=== PATIENT | male | born 1985 | race Caucasian/White ===

== ENCOUNTER → 2017-01-31 | Outpatient (CLI) | payer OTHER ==
[2017-01-31 11:55] LABS: Carbamazepine (Tegretol) 9.3 ug/mL
== END | disposition home or self-care (01) ==
LOC: LABWHC1 07:42
PROVIDERS: ATTEND Psychiatry & Neurology Neurology
DX: G40.209 Localization-related (focal) (partial) symptomatic epilepsy and epileptic syndromes with complex partial seizures, not intractable, without status epilepticus (principal)
CPT/HCPCS: 36415; 80156; 80177; 84295

== ENCOUNTER 2017-04-05 16:51 | Emergency (ER) | payer OTHER ==
[2017-04-05 16:57] VITALS: BP 161/104; PULSE 89; RESP 18; TEMP 98.5
[2017-04-05] MEDS ORDERED: PROPARACAINE 0.5% OPHTH DROPS 15 ML BTL BOTH EYES STA (17:29)
--- NOTE | 2017-04-05 17:47 | ED ---
Eye Problem HPI - General Chief complaint: Eye Problems Stated complaint: left eye irritation Time Seen by Provider: 04/05/17 17:00 Source: family, RN notes reviewed Mode of arrival: ambulatory Limitations: altered mental status - History of Present Illness Initial comments: Patient's 31-year-old male presents to the emergency room for evaluation of left eye irritation. 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 Patient 's mother states that she brought patient to his primary care provider today for runny nose, itchy eyes and nasal congestion. Patient's mother states that patient was started on methylprednisolone taper and Augmentin. Patient's mother states that patient has been itching his eyes consistently for the past few days. Patient's mother states that patient is given Benadryl in the morning every day. Patient's mother states that patient's left eye has become very red and draining. Patient's mother states that patient's eyes were not examined earlier today and would like his eyes examined. Patient's mother states that he either has a foreign body in his eye or he scratched his eye. Patient's mother denies fevers. Patient's mother denies any other symptoms or complaints. - Related Data Previous Rx's Medication Instructions Recorded Polymyxin B-Trimethoprim Ophth 1 drops LEFT EYE Q4H 10 Days 04/05/17 [Polytrim Opthalmic] Allergies Allergy/AdvReac Type Severity Reaction Status Date / Time cefaclor [From Ceclor] Allergy Rash/Hives Verified 04/05/17 16:58 phenytoin [From Dilantin] Allergy Rash/Hives Verified 04/05/17 16:58 Review of Systems ROS Statement: Those systems with pertinent positive or pertinent negative responses have been documented in the HPI. ROS Other: All systems not noted in ROS Statement are negative. Past Medical History Past Medical History: Seizure Disorder Additional Past Medical History / Comment(s): non verbal History of Any Multi-Drug Resistant Organisms: None Reported Past Surgical History: No Surgical Hx Reported Past Psychological History: No Psychological Hx Reported Smoking Status: Never smoker Past Alcohol Use History: None Reported Past Drug Use History: None Reported General Exam - General Exam Comments Initial Comments: Sitting in exam room, no distress Limitations: altered mental status General appearance: alert Head exam: Present: atraumatic, normocephalic, normal inspection Expanded Eyelids: Normal Inspection: Bilateral Pupils: Regular, Round: Bilateral, Reactive: Bilateral Sclera/Conjunctival: Normal Inspection: Right, Injection: Left, Exudate: Left Anterior chamber: Normal Inspection: Bilateral ENT exam: Present: TM's normal bilaterally, other (b/l clear runny nose) Neck exam: Present: normal inspection Respiratory exam: Present: normal lung sounds bilaterally. Absent: respiratory distress Cardiovascular Exam: Present: regular rate, normal rhythm, normal heart sounds Extremities exam: Present: normal inspection Back exam: Present: normal inspection Neurological exam: Present: alert, altered Psychiatric exam: Present: normal affect Skin exam: Present: warm, dry, intact, normal color. Absent: rash Course Vital Signs 04/05/17 16:53 Temperature 98.5 F Pulse Rate 89 Respiratory 18 Rate Blood Pressure 161/104 O2 Sat by Pulse 97 Oximetry Medical Decision Making - Medical Decision Making Patient is a 31-year-old male presents to the emergency room for evaluation of left eye irritation. Left eye was anesthetized with proparacaine drops and evaluated under wood lamp and fluorescein dye. Uptake noted over the pupil. No foreign bodies noted. Patient was placed on antibiotic eyedrops for corneal abrasion. Advised patient's mother to follow up with custom shop worker or primary care provider. Patient's mother states she understands everything that was discussed with her. Return parameters discussed. Disposition Clinical Impression: Left corneal abrasion Disposition: HOME SELF-CARE Condition: Good Instructions: Corneal Abrasion (ED) Additional Instructions: Apply eyedrops as directed. Please up with primary care provider or custom shop worker for reevaluation in 24-48 hours. Continue taking other prescribed medications as directed. If any new symptom arises or symptoms worsen , return to ER as soon as possible. Prescriptions: Polymyxin B-Trimethoprim Ophth [Polytrim Opthalmic] 1 drops LEFT EYE Q4H 10 Days Referrals: Valentin Young MD [Primary Care Provider] - 1-2 days Musa Grigsby MD [STAFF PHYSICIAN] - 1-2 days Time of Disposition: 17:44
== END 2017-04-05 17:54 | disposition home or self-care (01) ==
LOC: EEVIPCON 16:51 → EC 16:51
DX: S05.92XA Unspecified injury of left eye and orbit, initial encounter (principal); Z88.1 Allergy status to other antibiotic agents; Z88.8 Allergy status to other drugs, medicaments and biological substances; X58.XXXA Exposure to other specified factors, initial encounter
CPT/HCPCS: 99283

== ENCOUNTER → 2018-08-22 | Outpatient (CLI) | payer OTHER | LOC: LABWHC1 08:05 | PROVIDERS: ATTEND Psychiatry & Neurology Neurology | DX: G40.209 Localization-related (focal) (partial) symptomatic epilepsy and epileptic syndromes with complex partial seizures, not intractable, without status epilepticus (principal) | CPT/HCPCS: 36415; 80156; 80177 ==

== ENCOUNTER → 2020-11-29 | Outpatient (CLI) | payer OTHER ==
[2020-11-29 17:40] LABS: Carbamazepine (Tegretol) 10.3 ug/mL (4.0-12.0)
== END | disposition home or self-care (01) ==
LOC: LABWHC1 08:40
PROVIDERS: ATTEND Psychiatry & Neurology Neurology
DX: G40.209 Localization-related (focal) (partial) symptomatic epilepsy and epileptic syndromes with complex partial seizures, not intractable, without status epilepticus (principal)
CPT/HCPCS: 36415; 80156; 80177; 84295

== ENCOUNTER → 2021-08-09 | Outpatient (CLI) | payer OTHER ==
[2021-08-09 12:07] LABS: Carbamazepine (Tegretol) 9.3 ug/mL (4.0-12.0)
== END | disposition home or self-care (01) ==
LOC: LABWHC1 07:46
PROVIDERS: ATTEND Psychiatry & Neurology Neurology
DX: G40.209 Localization-related (focal) (partial) symptomatic epilepsy and epileptic syndromes with complex partial seizures, not intractable, without status epilepticus (principal)
CPT/HCPCS: 36415; 80156; 80177; 84295

== ENCOUNTER → 2022-07-03 | Outpatient (CLI) | payer OTHER ==
[2022-07-03 14:40] LABS: Basophils # (A) 0.07 X 10*3/uL (0.00-0.10); Basophils % (A) 1.4 %; Eosinophils # (A) 0.44 X 10*3/uL (0.04-0.35); Eosinophils % (A) 8.7 %; HCT 44.4 % (39.6-50.0); Immature Grans, Automated 0.4 %; Lymphocytes # (A) 1.86 X 10*3/uL (0.90-5.00); Lymphocytes % (A) 36.6 %; MCH 31.3 pg (27.0-32.0); MCHC 33.8 g/dL (32.0-37.0); MCV 92.7 fL (80.0-97.0); Mean Platelet Volume 11.2 fL (9.5-12.2); Monocytes # (A) 0.45 X 10*3/uL (0.20-1.00); Monocytes % (A) 8.9 %; NRBC Per 100 WBC 0 /100 WBCS (0.0-0.0); Neutrophils # (A) 2.24 X 10*3/uL (1.80-7.70); Platelet Count 226 X 10*3/uL (140-440); RBC 4.79 X 10*6/uL (4.40-5.60); RDW 12.2 % (11.5-14.5); WBC 5.08 X 10*3/uL (4.50-10.00)
[2022-07-03 15:47] LABS: African American GFR (CKD) 127.8 (60.0-200.0); Albumin 4.7 g/dL (3.8-4.9); Albumin/Globulin Ratio 1.52 (1.60-3.17); Anion Gap 11.1 mmol/L (10.00-18.00); BUN/Creat Ratio 14.56 Ratio (12.00-20.00); Blood Urea Nitrogen 13.1 mg/dL (9.0-27.0); Calcium 9.3 mg/dL (8.7-10.3); Carbon Dioxide 24.9 mmol/L (20.0-27.5); Globulin 3.1 g/dL (1.6-3.3); Non-African American GFR(CKD) 110.3 (60.0-200.0); Potassium 4.2 mmol/L (3.5-5.5); T4, Free (Free Thyroxine) 0.98 ng/dL (0.800-1.800); Total Bilirubin 0.3 mg/dL (0.30-1.20); Total Protein 7.8 g/dL (6.2-8.2)
[2022-07-03 19:11] LABS: Carbamazepine (Tegretol) 10.2 ug/mL (4.0-12.0)
== END | disposition home or self-care (01) ==
LOC: LABWHC1 08:12
PROVIDERS: ATTEND Psychiatry & Neurology Neurology
DX: G40.209 Localization-related (focal) (partial) symptomatic epilepsy and epileptic syndromes with complex partial seizures, not intractable, without status epilepticus (principal); R53.83 Other fatigue
CPT/HCPCS: 36415; 80053; 80156; 80177; 82306; 84439; 84443; 84481; 85025

== ENCOUNTER → 2023-10-24 | Outpatient (CLI) | payer OTHER ==
[2023-10-24 11:29] LABS: Carbamazepine (Tegretol) 11.7 UG/ML (4.0-12.0)
== END | disposition home or self-care (01) ==
LOC: LABWHC1 07:44
PROVIDERS: ATTEND Psychiatry & Neurology Neurology
DX: G40.009 Localization-related (focal) (partial) idiopathic epilepsy and epileptic syndromes with seizures of localized onset, not intractable, without status epilepticus (principal)
CPT/HCPCS: 36415; 80156; 80177; 84295

== ENCOUNTER → 2025-01-22 | Outpatient (CLI) | payer OTHER ==
[2025-01-22 10:38] LABS: Basophils # (A) 0.05 X 10*3/uL (0.00-0.10); Basophils % (A) 1.3 %; Eosinophils # (A) 0.38 X 10*3/uL (0.04-0.35); Eosinophils % (A) 9.5 %; HCT 44.9 % (39.6-50.0); HGB 14.8 g/dL (13.0-17.0); Lymphocytes # (A) 1.48 X 10*3/uL (0.90-5.00); MCH 30.6 pg (27.0-32.0); Monocytes # (A) 0.36 X 10*3/uL (0.20-1.00); NRBC Per 100 WBC 0 X 10*3/uL (0.00-0.01); Neutrophils # (A) 1.72 X 10*3/uL (1.80-7.70); Neutrophils % (A) 42.9 %; Platelet Count 189 X 10*3/uL (140-440); RBC 4.83 X 10*6/uL (4.40-5.60); RDW 11.9 % (11.5-14.5)
[2025-01-22 16:42] LABS: Chol/HDL Ratio 3.76 Ratio; LDL Cholesterol,Calculated 152.3 mg/dL (0.0-131.0); VLDL Calculation 18.74 mg/dL (5.00-40.00)
[2025-01-22 16:43] LABS: ALT 33 U/L (10-49); AST 28 U/L (14-35); Albumin 4.3 g/dL (3.8-4.9); Albumin/Globulin Ratio 1.26 Ratio (1.60-3.17); Alkaline Phosphatase 92 U/L (41-126); BUN/Creat Ratio 15.44 Ratio (12.00-20.00); Blood Urea Nitrogen 13.9 mg/dL (9.0-27.0); Calcium 9.3 mg/dL (8.7-10.3); Carbon Dioxide 22.8 mmol/L (21.6-31.8); Chloride 106 mmol/L (96-109); Globulin 3.4 g/dL (1.6-3.3); Glucose 83 mg/dL (70-110); Potassium 4.1 mmol/L (3.5-5.5); Sodium 140 mmol/L (135-145); T4, Free (Free Thyroxine) 1.01 ng/dL (0.80-1.80); Total Bilirubin 0.3 mg/dL (0.3-1.2); Total Protein 7.7 g/dL (6.2-8.2)
[2025-01-22 18:02] LABS: Carbamazepine (Tegretol) 9.6 UG/ML (4.0-12.0)
== END | disposition home or self-care (01) ==
LOC: LABWHC1 07:16
PROVIDERS: ATTEND Psychiatry & Neurology Neurology
DX: Z13.220 Encounter for screening for lipoid disorders (principal); E55.9 Vitamin D deficiency, unspecified; G40.009 Localization-related (focal) (partial) idiopathic epilepsy and epileptic syndromes with seizures of localized onset, not intractable, without status epilepticus
CPT/HCPCS: 36415; 80053; 80061; 80156; 80177; 82306; 83036; 84439; 84443; 85025